=== PATIENT | male | born 1980 | race African-American/Black ===

== ENCOUNTER 2020-03-22 09:12 | Emergency (ER) | payer SELFPAY ==
[~2020-03-22] VITALS: Ht 180.3 cm; Wt 74.8 kg
[2020-03-22 09:14] VITALS: BP 107/55
--- NOTE | 2020-03-22 09:15 | NUR ---
BIBA TI BED 6.
--- NOTE | 2020-03-22 09:22 | NUR ---
39 y/o male c/o hearing voices. Pt is SI with no plan. VSS will continue to monitor. PMH: Bipolar RX unknown. NKA
--- NOTE | 2020-03-22 09:32 | NUR ---
[place] [employer] at pt bedside, placed on a 5150.
[2020-03-22 09:36] LABS: BASOPHILS % (AUTO) 0.6 % (0.0-2.0); EOSINOPHILS # (AUTO) 0.3 K/uL (0-0.4); HEMATOCRIT 40.2 % (36-52); HEMOGLOBIN 13.3 g/dL (12.0-18.0); LYMPHOCYTES # (AUTO) 1.3 K/uL (2.0-11.5); LYMPHOCYTES % (AUTO) 23.1 % (20.5-51.1); MEAN CORPUSCULAR HEMOGLOBIN 31 pg (27-31); MEAN CORPUSCULAR HGB CONC 33 g/dL (33-37); MEAN CORPUSCULAR VOLUME 93.8 fL (80-94); MONOCYTES # (AUTO) 0.4 K/uL (0.8-1.0); MONOCYTES % (AUTO) 7.9 % (1.7-9.3); NEUTROPHILS # (AUTO) 3.6 K/uL (1.8-7.7); NEUTROPHILS % (AUTO) 63.4 % (42.2-75.2); PLATELET COUNT (AUTO) 249 K/uL (140-450); RED BLOOD CELL COUNT(AUTO) 4.28 MIL/uL (4.20-6.10); RED CELL DISTRIBUTION WIDTH 13.6 % (11.6-13.7); WHITE BLOOD COUNT (AUTO) 5.6 K/uL (4.8-10.8)
[2020-03-22 09:48] LABS: ACETAMINOPHEN 0.7 ug/ml (10-30); ALBUMIN 3.5 g/dL (3.4-5.0); ANION GAP 13.2 (8-16); ASPARTATE AMINOTRANSFERASE 20 U/L (15-37); CARBON DIOXIDE 26.7 mmol/L (21-32); CHLORIDE 109 mmol/L (98-107); CREATININE 0.8 mg/dL (0.6-1.3); GFR ARICAN-AMERICAN 139 mL/min (>90); GLUCOSE 91 mg/dL (74-106); POTASSIUM 3.9 mmol/L (3.5-5.1); SALICYLATE 2.8 mg/dL (2.8-20.0); SODIUM SERUM 145 mmol/L (136-145); TOTAL BILIRUBIN 0.2 mg/dL (0.0-1.0); UREA NITROGEN, BLOOD 12 mg/dL (7-18)
--- NOTE | 2020-03-22 10:01 | NUR ---
Urine collected from patient and sent to lab.
[2020-03-22 10:50] LABS: BARBITURATE, URINE NEGATIVE ng/ml (NEG <=200); BENZODIAZEPINE, URINE NEGATIVE ng/mL (NEG <=200); CANNABINOID, URINE NEGATIVE ng/mL (NEG <=50); COCAINE, URINE NEGATIVE ng/mL (NEG <=300); OPIATE, URINE NEGATIVE ng/mL (NEG <=2000); PHENCYCLIDINE SCREEN,URINE NEGATIVE ng/mL (NEG <=25)
--- NOTE | 2020-03-22 11:11 | NUR ---
Pt sleeping on right side, will continue to monitor.
--- NOTE | 2020-03-22 11:46 | NUR ---
Telepsych psychiatrist speaking with patient.
--- NOTE | 2020-03-22 11:59 | NUR ---
Spoke with psychiatrist for telehealth. Recommends the patient be removed from [address] Huston made aware. Will provide resources for a jail per recommendation.
--- NOTE | 2020-03-22 12:04 | NUR ---
Lunch tray provided and pt eating quietly.
--- NOTE | 2020-03-22 12:12 | NUR ---
Pt will be removed from the 5150 by psychiatrist. Pt may be discharged with list of shelters.
[2020-03-22 12:47] VITALS: BP 104/64
--- NOTE | 2020-03-22 12:48 | NUR ---
Patient discharged with v/s stable. Written and verbal after care instructions given and explained. Patient verbalized understanding. Ambulatory with steady gait. All questions addressed prior to discharge. Advised to follow up with PMD. Pt received homeless resource packet, food packet received and bus pass by request.
== END 2020-03-22 12:48 | disposition home or self-care (01) ==
LOC: EDBD 09:12 → MED 09:12
DX: T73.0XXA Starvation, initial encounter (principal); F32.9 Major depressive disorder, single episode, unspecified; Z59.0 Homelessness; X58.XXXA Exposure to other specified factors, initial encounter; Z20.828 Contact with and (suspected) exposure to other viral communicable diseases
CPT/HCPCS: 36415; 80053; 80305; 85025; 87426; 99285; G0480; G0482